=== PATIENT | female | born 1985 | race Caucasian/White ===

== ENCOUNTER 2019-12-23 08:35 | Emergency (ER) | payer MEDICAID ==
[2019-12-23 09:16] LABS: ABSOLUTE BASOPHILS # (AUTO) 0.1 10^3/uL (0.0-0.2); ABSOLUTE EOSINOPHILS # (AUTO) 0.3 10^3/uL (0.0-0.6); ABSOLUTE LYMPHOCYTES (AUTO) 2.5 10^3/uL (0.5-4.7); ABSOLUTE MONOCYTES (AUTO) 0.8 10^3/uL (0.1-1.4); ABSOLUTE NEUT (AUTO) 10.6 10^3/uL (1.7-8.2); BASOPHILS % (AUTO) 0.4 % (0-2); EOSINOPHILS % (AUTO) 2.3 % (0-6); HEMATOCRIT 43.1 % (36.0-47.0); HEMOGLOBIN 14.9 g/dL (12.0-15.5); LYMPHOCYTES % (AUTO) 17.2 % (13-45); MEAN CORPUSCULAR HEMOGLOBIN 31.3 pg (27.0-33.4); MEAN CORPUSCULAR HGB CONC 34.5 g/dL (32.0-36.0); MEAN CORPUSCULAR VOLUME 91 fl (80-97); MONOCYTES % (AUTO) 5.9 % (3-13); PLATELET COUNT 316 10^3/uL (150-450); RED BLOOD COUNT 4.74 10^6/uL (3.72-5.28); RED CELL DISTRIBUTION WIDTH 13.1 % (11.5-14.0); SEGMENTED NEUTROPHILS % (AUTO) 74.2 % (42-78); TOTAL CELLS COUNTED % (AUTO) 100 %; WHITE BLOOD COUNT 14.3 10^3/uL (4.0-10.5)
[2019-12-23 09:18] LABS: APPEARANCE,URINE SLIGHTLY-CLOUDY; BILIRUBIN,URINE NEGATIVE (NEGATIVE); COLOR,URINE YELLOW; GLUCOSE, URINE NEGATIVE (NEGATIVE); KETONES,URINE NEGATIVE (NEGATIVE); LEUKOCYTE ESTERASE,URINE SMALL (NEGATIVE); NITRITE,URINE NEGATIVE (NEGATIVE); PROTEIN,URINE NEGATIVE (NEGATIVE); URINE SPECIFIC GRAVITY 1.014; UROBILINOGEN,URINE NEGATIVE mg/dL (<2.0)
[2019-12-23 09:39] LABS: ALKALINE PHOSPHATASE 62 U/L (38-126); ANION GAP 10 (5-19); ASPARTATE AMINO TRANSFERASE 22 U/L (14-36); BILIRUBIN,TOTAL 0.3 mg/dL (0.2-1.3); BLOOD UREA NITROGEN 9 mg/dL (7-20); CALCIUM 9.3 mg/dL (8.4-10.2); CARBON DIOXIDE 22 mmol/L (22-30); CHLORIDE 104 mmol/L (98-107); GLUCOSE 92 mg/dL (75-110); POTASSIUM 4.3 mmol/L (3.6-5.0); TOTAL PROTEIN 7.1 g/dL (6.3-8.2)
--- NOTE | 2019-12-23 10:42 | ER Document Report ---
Entered by BEN SIMONS SCRIBE 12/23/19 1016 Acting as scribe for:LINDSEY HILLS DO ED GI/ - General Chief Complaint: Vag Bleeding, +preg <12wks Stated Complaint: VAGINAL BLEEDING Time Seen by Provider: 12/23/19 09:59 Primary Care Provider: MALOU CARLSON PA-C [Primary Care Provider] - Follow up as needed Mode of Arrival: Ambulatory Information source: Patient Notes: This 34-year-old female patient presents to the emergency department today with complaints of vaginal bleeding. Patient states her last menstrual period was around [place] and she thinks she is about 8 weeks . Patient is A1. Patient states this morning she sat down to urinate and she wiped and noticed blood, wiped again and noticed blood again. Patient states she had some mild right lower quadrant cramping that felt like "menstrual cramps". Patient states her urine had a strong odor this morning. Patient denies any pain currently. TRAVEL OUTSIDE OF THE [place] IN LAST 30 DAYS: No - Related Data Allergies/Adverse Reactions: No Known Allergies Allergy (Verified 12/23/19 08:36) Home Medications: OTC pre domi vit. Chazs/richlands Past Medical History - General Information source: Patient - Social History Smoking Status: Never Smoker Cigarette use (# per day): No Chew tobacco use (# tins/day): No Frequency of alcohol use: None Drug Abuse: None Lives with: Family Family History: Reviewed & Not Pertinent Patient has suicidal ideation: No Patient has homicidal ideation: No Renal/ Medical History: Reports: Hx Kidney Stones Past Surgical History: Reports: Hx Dilation and Curettage, Hx Tonsillectomy - Immunizations Hx Diphtheria, Pertussis, Tetanus Vaccination: Yes Review of Systems - Review of Systems Constitutional: No symptoms reported EENT: No symptoms reported Cardiovascular: No symptoms reported Respiratory: No symptoms reported Gastrointestinal: No symptoms reported Genitourinary: No symptoms reported Female Genitourinary: See HPI, , Vaginal bleeding Musculoskeletal: No symptoms reported Skin: No symptoms reported Hematologic/Lymphatic: No symptoms reported Neurological/Psychological: No symptoms reported -: Yes All other systems reviewed and negative Physical Exam - Vital signs Vitals: Temp Pulse Resp BP Pulse Ox 98.1 F 99 14 129/81 H 100 12/23/19 08:46 12/23/19 08:46 12/23/19 08:46 12/23/19 08:46 12/23/19 08:46 - Notes Notes: Physical Exam: General: Alert, appears well. HEENT: Normocephalic. Atraumatic. PERRL. Extraocular movements intact. Oropharynx clear. Neck: Supple. Non-tender. Respiratory: No respiratory distress. Clear and equal breath sounds bilaterally. Cardiovascular: Regular rate and rhythm. Abdominal: Normal Inspection. Non-tender. No distension. Normal Bowel Sounds. Back: No gross abnormalities. Extremities: Moves all four extremities. Upper extremities: Normal inspection. Normal ROM. Lower extremities: Normal inspection. No edema. Normal ROM. Neurological: Normal cognition. AAOx4. Normal speech. Psychological: Normal affect. Normal Mood. Skin: Warm. Dry. Normal color. Course - Vital Signs Vital signs: Temp Pulse Resp BP Pulse Ox 98.0 F 78 18 126/78 H 100 12/23/19 14:30 12/23/19 14:30 12/23/19 14:30 12/23/19 14:30 12/23/19 14:30 - Laboratory Result Diagrams: 12/23/19 08:55 12/23/19 08:55 Laboratory results interpreted by me: 12/23/19 12/23/19 12/23/19 08:55 08:55 08:55 WBC 14.3 H Absolute Neuts (auto) 10.6 H Sodium 135.7 L Beta HCG, Quant Ur Leukocyte Esterase SMALL H Urine Ascorbic Acid 20 H Urine HCG, Qual POSITIVE H 12/23/19 08:55 WBC Absolute Neuts (auto) Sodium Beta HCG, Quant 469920.00 H Ur Leukocyte Esterase Urine Ascorbic Acid Urine HCG, Qual Discharge - Discharge Clinical Impression: Threatened Condition: Good Disposition: HOME, SELF-CARE Instructions: ([facility]), Threatened Miscarriage ([facility]) Additional Instructions: See your doctors in follow up. Pelvic rest. No sex, douche or tampons until after Superintendent Custodian Janitor follow up. Please return here for abdominal pain, fever, other concerns. Prescriptions: Ondansetron [Zofran Odt 4 mg Tablet] 1 - 2 tab PO Q4HP PRN #10 tab.rapdis PRN Reason: Forms: Return to Work Referrals: MALOU CARLSON PA-C [Primary Care Provider] - Follow up as needed I personally performed the services described in the documentation, reviewed and edited the documentation which was dictated to the scribe in my presence, and it accurately records my words and actions.
--- NOTE | 2019-12-23 12:39 | RADIOLOGY REPORT (SQ) ---
EXAM DESCRIPTION: U/S [id number] TRNABD 1GES W/ODOP COMPLETED DATE/TIME: 12/23/2019 12:22 pm REASON FOR STUDY: Right side pain COMPARISON: None. TECHNIQUE: Transabdominal static and realtime grayscale images acquired of the pelvis. Additional se lected spectral and color Doppler images recorded. All images stored on PACs. bHCG: Not available. CLINICAL DATES: 7 weeks 5 days LIMITATIONS: None. FINDINGS: FETUS: Single Living intrauterine . ULTRASOUND EGA: 7 weeks 5 days ULTRASOUND CARMEN: 08/05/2020 EFW: Not applicable less than 20 weeks. CRL: 1.4 cm. FHR: 168 beats per minute. SURVEY: Too early to assess. AMNIOTIC FLUID: Adequate amount. PLACENTA: Not yet developed due to early gestation. SUBCHORIONIC BLEED: Yes SIZE OF BLEED: 1 cm UTERUS: No masses. No anomalies. CERVICAL LENGTH: 1.9 cm Closed. RIGHT ADNEXA: Normal ovary with normal vascular flow. 5 x 3.6 x 2.5 cm. There is an 18 mm cyst. No adnexal free fluid. No adnexal masses. LEFT ADNEXA: Normal ovary with normal vascular flow. 2.8 x 2.3 x 2.1 cm. No adnexal free fluid. No adnexal masses. FREE FLUID: None. OTHER: No other significant finding. IMPRESSION: LIVING INTRAUTERINE . EGA 7 weeks 5 days. Trimester of : First trimester - 0 to 13 weeks. TECHNICAL DOCUMENTATION: JOB ID: [id number] 2010 [employer]- All Rights Reserved rev-03/23 Reading location - IP/workstation name: [email or web address]
[2019-12-23 13:04] LABS: CHLAM PCR NOT DETECTED (NOT DETECT)
[2019-12-23 14:31] VITALS: BP 126/78
== END 2019-12-23 14:30 | disposition home or self-care (01) ==
LOC: ER 08:35
DX: O20.0 Threatened abortion (principal); O26.899 Other specified pregnancy related conditions, unspecified trimester; R10.31 Right lower quadrant pain; R39.89 Other symptoms and signs involving the genitourinary system; Z3A.00 Weeks of gestation of pregnancy not specified; Z79.899 Other long term (current) drug therapy
CPT/HCPCS: 36415; 76801; 80053; 81001; 81025; 83690; 84702; 85025; 86900; 86901; 87491; 87591; 99284

== ENCOUNTER → 2020-01-03 | Outpatient (CLI) | payer MEDICAID ==
--- NOTE | 2020-01-03 14:11 | RADIOLOGY REPORT (SQ) ---
EXAM DESCRIPTION: U/S [id number] TRNABD 1GES W/ODOP COMPLETED DATE/TIME: 01/03/2020 1:34 pm REASON FOR STUDY: Z34.81 ENCOUNTER FOR SUPRVSN OF NORMAL , FIRST TRIMESTER Z34.81 ENCOUNTE R FOR SUPRVSN OF NORMAL , FIRST TRIM COMPARISON: 12/23/2019 TECHNIQUE: Transabdominal static and realtime grayscale images acquired of the pelvis. Additional se lected spectral and color Doppler images recorded. All images stored on PACs. bHCG: Not applicable. CLINICAL DATES: LMP 10/30/2019. 9 weeks 2 days. LIMITATIONS: None. FINDINGS: FETUS: Single Living intrauterine . ULTRASOUND EGA: 9 weeks 6 days. ULTRASOUND CARMEN: 08/01/2020 EFW: Not applicable less than 20 weeks. CRL: 3 cm. FHR: 173 beats per minute. SURVEY: Too early to assess. AMNIOTIC FLUID: Adequate amount. PLACENTA: Not yet developed due to early gestation. SUBCHORIONIC BLEED: Yes SIZE OF BLEED: 3.8 x 1.8 x 1 cm. UTERUS: No masses. No anomalies. CERVICAL LENGTH: 3.4 cm. Closed. RIGHT ADNEXA: Normal ovary with normal vascular flow. 3 x 2.3 x 2.6 cm. No adnexal free fluid. No adnexal masses. LEFT ADNEXA: Normal ovary with normal vascular flow. 2.9 x 2.3 x 1.7 cm. No adnexal free fluid. No adnexal masses. FREE FLUID: None. OTHER: No other significant finding. IMPRESSION: LIVING INTRAUTERINE . EGA 9 weeks 6 days. Trimester of : First trimester - 0 to 13 weeks. TECHNICAL DOCUMENTATION: JOB ID: [id number] 2010 [employer]- All Rights Reserved rev-03/23 Reading location - IP/workstation name: [email or web address]
== END ==
LOC: WI 12:45
PROVIDERS: ATTEND Midwife
DX: Z34.81 Encounter for supervision of other normal pregnancy, first trimester (principal); Z3A.09 9 weeks gestation of pregnancy
CPT/HCPCS: 76801

== ENCOUNTER 2020-03-24 14:20 | Inpatient (IN) | payer MEDICAID ==
[2020-03-24] MEDS ORDERED: RINGERS SOLUTION,LACTATED 300 ML IV ONE (14:28)
[2020-03-24] MEDS ORDERED: ACETAMINOPHEN 325 MG TABLET PO PRN ×2 (14:38→23:22)
[2020-03-24 15:21] LABS: HEMATOCRIT 34.4 % (36.0-47.0); MEAN CORPUSCULAR HEMOGLOBIN 31.4 pg (27.0-33.4); MEAN CORPUSCULAR HGB CONC 34.9 g/dL (32.0-36.0); MEAN CORPUSCULAR VOLUME 90 fl (80-97); PLATELET COUNT 241 10^3/uL (150-450); RED BLOOD COUNT 3.82 10^6/uL (3.72-5.28); RED CELL DISTRIBUTION WIDTH 12.5 % (11.5-14.0); WHITE BLOOD COUNT 13.8 10^3/uL (4.0-10.5)
[2020-03-24] MEDS: RINGERS SOLUTION,LACTATED 1,000 ML IV PRN (15:23)
[2020-03-24 15:38] LABS: ABSOLUTE LYMPHOCYTES# (MANUAL) 0.7 10^3/uL (0.5-4.7); ABSOLUTE MONOCYTES # (MANUAL) 0.6 10^3/uL (0.1-1.4); BAND NEUTROPHILS % (MANUAL) 4 % (3-5); BASOPHILS % (MANUAL) 0 % (0-2); EOSINOPHILS % (MANUAL) 0 % (0-6); LYMPHOCYTES % (MANUAL) 4 % (13-45); MONOCYTES % (MANUAL) 4 % (3-13); SEGMENTED NEUTROPHILS % (MAN) 87 % (42-78); TOTAL CELLS COUNTED 100
[2020-03-24 15:40] LABS: PLATELET COMMENT ADEQUATE; POLYCHROMASIA SLIGHT
[2020-03-24] MEDS ORDERED: PROMETHAZINE HCL INJ 25 MG/1 ML VIAL ONE ×3 (15:45→21:32)
[2020-03-24] MEDS ORDERED: PROMETHAZINE HCL INJ 25 MG/1 ML VIAL IV ONE (16:30)
[2020-03-24] MEDS: CEFTRIAXONE 1 GM/D5W RTU 1 GM/50 ML RTUPB IV SCH (17:09)
--- NOTE | 2020-03-24 17:18 | PDOC PROGRESS REPORT ---
Subjective Progress Note for:: 03/24/20 Subjective:: 35yo @ 20w6d direct admit from office with possible kidney stone vs pyelonephritis. Pt reports feeling better after she got here, thinks she passed a stone on arrival. Reports chills are still present and nauseous, no other concerns Reason For Visit: IUP @ 20W6D - PRESUMPTIVE PYELONEPHRITIS Physical Exam - Physical Exam Vital Signs: Temp Pulse Resp BP Pulse Ox 99.3 F 123 H 16 118/98 H 99 03/24/20 16:53 03/24/20 16:53 03/24/20 16:53 03/24/20 16:53 03/24/20 16:53 Intake & Output 03/23/20 03/24/20 03/25/20 06:59 06:59 06:59 Weight 88.4 kg Result Laboratory Results: 03/24/20 15:12 03/24/20 15:12 WBC 13.8 H RBC 3.82 Hgb 12.0 Hct 34.4 L MCV 90 MCH 31.4 MCHC 34.9 RDW 12.5 Plt Count 241 Seg Neutrophils % Not Reportable Assessment & Plan - Diagnosis (1) related back pain in second trimester, antepartum Is this a current diagnosis for this admission?: Yes Plan: continue IV fluids, rocephin q12hrs and other orders as planned on admission. U rine culture and covid testing pending. Phenergan given for nausea, consider IV tylenol if nausea continues. Dr. Carl is the OB commercial subcontractor today and aware of pt status. H&P printed from e-clinical and in chart. - Time Time Spent with patient: via phone while awaiting covid results Time Spent with patient: Less than 15 minutes Level of Care: MEDICAL Medications reviewed and adjusted accordingly: Yes Anticipated discharge: Home Within: within 36 hours - Plan Summary Plan Summary: anticipate discharge within 36hrs, earlier prn
[2020-03-24 17:42] LABS: APPEARANCE,URINE CLOUDY; BILIRUBIN,URINE NEGATIVE (NEGATIVE); COLOR,URINE YELLOW; GLUCOSE, URINE NEGATIVE (NEGATIVE); KETONES,URINE 20 mg/dL (NEGATIVE); LEUKOCYTE ESTERASE,URINE LARGE (NEGATIVE); NITRITE,URINE NEGATIVE (NEGATIVE); PROTEIN,URINE 100 mg/dL (NEGATIVE); URINE SPECIFIC GRAVITY 1.018; UROBILINOGEN,URINE NEGATIVE mg/dL (<2.0)
[2020-03-24 18:06] LABS: URINE AMPHETAMINES SCREEN NEGATIVE; URINE BARBITURATES SCREEN NEGATIVE; URINE BENZODIAZEPINES SCREEN NEGATIVE; URINE COCAINE SCREEN NEGATIVE; URINE MARIJUANA (THC) SCREEN NEGATIVE; URINE METHADONE SCREEN NEGATIVE; URINE PHENCYCLIDINE SCREEN NEGATIVE
[2020-03-24] MEDS ORDERED: CEFTRIAXONE INJ 1000 MG VIAL IV SCH (22:00)
[2020-03-24] MEDS ORDERED: CEFTRIAXONE 1 GM/D5W RTU 1 GM/50 ML RTUPB IV SCH (22:00)
[2020-03-24] MEDS ORDERED: ACETAMINOPHEN 325 MG SUPP.RECT PR PRN (23:14)
[2020-03-25] MEDS: RINGERS SOLUTION,LACTATED 1,000 ML IV PRN ×3 (00:27→21:58)
[2020-03-25] MEDS: PROMETHAZINE HCL INJ 25 MG/1 ML VIAL IV PRN ×3 (03:58→20:50)
[2020-03-25] MEDS: CEFTRIAXONE 1 GM/D5W RTU 1 GM/50 ML RTUPB IV SCH ×2 (05:18→17:25)
[2020-03-25] MEDS: ONDANSETRON HCL INJ/PF 4 MG/2 ML SDV IV PRN ×2 (08:54→17:32)
--- NOTE | 2020-03-25 10:43 | PDOC PROGRESS REPORT ---
Subjective Progress Note for:: 03/25/20 Subjective:: [place]F, reports vomiting a lot last night. thinks tyelnol po was irritating her stomach. flutters. no vb/no lof. Reason For Visit: NORAH @ 20W6D - PRESUMPTIVE PYELONEPHRITIS Physical Exam - Physical Exam Vital Signs: Temp Pulse Resp BP Pulse Ox 99.4 F 128 H 16 96/57 L 95 03/25/20 08:00 03/25/20 08:00 03/25/20 08:00 03/25/20 08:00 03/25/20 08:00 Intake & Output 03/24/20 03/25/20 03/26/20 06:59 06:59 06:59 Intake Total 420 Output Total 1425 Balance -1005 Weight 88 kg General appearance: PRESENT: no acute distress, well-developed, well-nourished Head exam: PRESENT: atraumatic, normocephalic Eye exam: PRESENT: conjunctiva pink, EOMI, PERRLA. ABSENT: scleral icterus Mouth exam: PRESENT: moist, tongue midline Respiratory exam: PRESENT: clear to auscultation parag, symmetrical, unlabored Cardiovascular exam: PRESENT: RRR. ABSENT: diastolic murmur, rubs, systolic murmur Pulses: PRESENT: normal dorsalis pedis pul, +2 pedal pulses bilateral Vascular exam: PRESENT: normal capillary refill GI/Abdominal exam: PRESENT: normal bowel sounds, soft. ABSENT: distended, guarding, mass, organolmegaly, rebound, tenderness Rectal exam: PRESENT: deferred Extremities exam: PRESENT: full ROM. ABSENT: calf tenderness, clubbing, pedal edema Musculoskeletal exam: PRESENT: ambulatory Neurological exam: PRESENT: alert, awake, oriented to person, oriented to place, oriented to time, oriented to situation, CN II-XII grossly intact. ABSENT: motor sensory deficit Skin exam: PRESENT: dry, intact, warm. ABSENT: cyanosis, rash Result Laboratory Results: 03/24/20 15:12 03/24/20 03/24/20 15:12 17:20 WBC 13.8 H RBC 3.82 Hgb 12.0 Hct 34.4 L MCV 90 MCH 31.4 MCHC 34.9 RDW 12.5 Plt Count 241 Seg Neutrophils % Not Reportable Urine Color YELLOW Urine Appearance CLOUDY Urine pH 6.0 Ur Specific [place] 1.018 Urine Protein 100 H Urine Glucose (UA) NEGATIVE Urine Ketones 20 H Urine Blood SMALL H Urine Nitrite NEGATIVE Ur Leukocyte Esterase LARGE H Urine WBC (Auto) >182 Urine RBC (Auto) 48 Status: Imported from PACS Assessment & Plan - Diagnosis (1) Pyelonephritis affecting Is this a current diagnosis for this admission?: Yes Plan: Cont ROcephin 1 gram q 12. Blood cultures, sepsis screen ordered increase IVF due to still dehydration and tachy. cont to treat fever prn. Changed pain meds to po elixir. (2) Nephrolithiasis Is this a current diagnosis for this admission?: Yes Plan: see above - Time Time Spent with patient: 15-24 minutes Medications reviewed and adjusted accordingly: Yes Anticipated discharge: Home Within: within 48 hours - Inpatient Certification Based on my medical assessment, after consideration of the patient's comorbidities, presenting symptoms, or acuity I expect that the services needed warrant INPATIENT care.: Yes I certify that my determination is in accordance with my understanding of Medicare's requirements for reasonable and necessary INPATIENT services [42 CFR 412.3e].: Yes Medical Necessity: Need Close Monitoring Due to Risk of Patient Decompensation, Need For IV Fluids, Need for Pain Control, Need for IV Antibiotics, Risk of Complication if Not Cared For in Hospital
[2020-03-25] MEDS ORDERED: RINGERS SOLUTION,LACTATED 1,000 ML IV ONE (12:38)
[2020-03-25] MEDS: ACETAMINOPHEN WITH CODEINE 120-12 MG/5 ML UDCUP PO PRN ×3 (12:45→22:23)
[2020-03-25 13:28] LABS: ALBUMIN 2.5 g/dL (3.5-5.0); ALKALINE PHOSPHATASE 39 U/L (38-126); ANION GAP 8 (5-19); ASPARTATE AMINO TRANSFERASE 16 U/L (14-36); BILIRUBIN,TOTAL 0.2 mg/dL (0.2-1.3); BLOOD UREA NITROGEN 4 mg/dL (7-20); CALCIUM 7.7 mg/dL (8.4-10.2); CARBON DIOXIDE 19 mmol/L (22-30); CHLORIDE 104 mmol/L (98-107); GLUCOSE 130 mg/dL (75-110); POTASSIUM 3.2 mmol/L (3.6-5.0); TOTAL PROTEIN 5.2 g/dL (6.3-8.2)
[2020-03-25 13:37] LABS: ABSOLUTE LYMPHOCYTES (AUTO) 1.1 10^3/uL (0.5-4.7); ABSOLUTE MONOCYTES (AUTO) 0.8 10^3/uL (0.1-1.4); ABSOLUTE NEUT (AUTO) 11.3 10^3/uL (1.7-8.2); BASOPHILS % (AUTO) 0.1 % (0-2); HEMATOCRIT 27.8 % (36.0-47.0); LYMPHOCYTES % (AUTO) 8.3 % (13-45); MEAN CORPUSCULAR HEMOGLOBIN 31.9 pg (27.0-33.4); MEAN CORPUSCULAR HGB CONC 35.2 g/dL (32.0-36.0); MEAN CORPUSCULAR VOLUME 91 fl (80-97); MONOCYTES % (AUTO) 5.9 % (3-13); PLATELET COUNT 196 10^3/uL (150-450); RED BLOOD COUNT 3.07 10^6/uL (3.72-5.28); RED CELL DISTRIBUTION WIDTH 12.7 % (11.5-14.0); SEGMENTED NEUTROPHILS % (AUTO) 85.7 % (42-78); TOTAL CELLS COUNTED % (AUTO) 100 %; WHITE BLOOD COUNT 13.2 10^3/uL (4.0-10.5)
[2020-03-25 13:38] LABS: HEMOGLOBIN 9.8 g/dL (12.0-15.5)
[2020-03-25] MEDS: FAMOTIDINE INJ/PF 20 MG/2 ML SDV IV SCH (22:24)
[2020-03-26] MEDS: ONDANSETRON HCL INJ/PF 4 MG/2 ML SDV IV PRN ×3 (02:29→22:06)
[2020-03-26] MEDS: ACETAMINOPHEN SOLN 325 MG/10.15 ML UDCUP PO PRN ×4 (06:25→22:04)
[2020-03-26] MEDS: RINGERS SOLUTION,LACTATED 1,000 ML IV PRN ×3 (06:34→18:52)
[2020-03-26] MEDS: CEFTRIAXONE 1 GM/D5W RTU 1 GM/50 ML RTUPB IV SCH ×2 (06:34→17:01)
--- NOTE | 2020-03-26 07:13 | RADIOLOGY REPORT (SQ) ---
CHEST 1 VIEW on 03/26/2020 at 6:20 AM CLINICAL INDICATION: Chest pain COMPARISON: None FINDINGS: The lungs are clear. Cardiac, hilar and mediastinal contours are within normal limits. Pulmonary vascularity is within normal limits. No bony abnormality is noted. IMPRESSION: No active disease.
[2020-03-26 07:14] LABS: ABSOLUTE LYMPHOCYTES (AUTO) 1.2 10^3/uL (0.5-4.7); ABSOLUTE MONOCYTES (AUTO) 0.8 10^3/uL (0.1-1.4); ABSOLUTE NEUT (AUTO) 8.5 10^3/uL (1.7-8.2); BASOPHILS % (AUTO) 0.4 % (0-2); EOSINOPHILS % (AUTO) 0.1 % (0-6); HEMATOCRIT 26.9 % (36.0-47.0); HEMOGLOBIN 9.7 g/dL (12.0-15.5); LYMPHOCYTES % (AUTO) 11.6 % (13-45); MEAN CORPUSCULAR HGB CONC 36.3 g/dL (32.0-36.0); MEAN CORPUSCULAR VOLUME 91 fl (80-97); MONOCYTES % (AUTO) 7.3 % (3-13); PLATELET COUNT 178 10^3/uL (150-450); RED BLOOD COUNT 2.96 10^6/uL (3.72-5.28); RED CELL DISTRIBUTION WIDTH 12.6 % (11.5-14.0); SEGMENTED NEUTROPHILS % (AUTO) 80.6 % (42-78); TOTAL CELLS COUNTED % (AUTO) 100 %; WHITE BLOOD COUNT 10.5 10^3/uL (4.0-10.5)
[2020-03-26 07:32] LABS: ANION GAP 6 (5-19); BLOOD UREA NITROGEN 4 mg/dL (7-20); CALCIUM 7.7 mg/dL (8.4-10.2); CARBON DIOXIDE 20 mmol/L (22-30); CHLORIDE 105 mmol/L (98-107); GLUCOSE 103 mg/dL (75-110); POTASSIUM 3.3 mmol/L (3.6-5.0)
[2020-03-26 07:44] LABS: NT PRO BNP 1240 pg/mL (<125); TROPONIN I 0.035 ng/mL
[2020-03-26 07:45] LABS: CREATINE KINASE MB < 0.22 ng/mL (<4.55)
[2020-03-26] MEDS ORDERED: NORMAL SALINE 1000 ML 1,000 ML IV ONE (08:00)
--- NOTE | 2020-03-26 09:37 | PDOC CONSULTATION ---
Consultation Consult Date: 03/26/20 Provider Consulted: MISAEL TAYLOR Consult reason:: Chest pain History of Present Illness Admission Date/PCP: 03/24/20 14:20 RYLAN PEACE CNM History of Present Illness: DARYA BARILLAS is a 35 year old female at 20 weeks who was admitted by the obstetric service for a pyelonephritis. She has been on Rocephin. This morning she was complaining of some chest pressure and shortness of breath in the middle of her chest. It was nonradiating. She said it lasted for about 2 hours and has resolved. She was not hypoxic, but her SPO2 was apparently in the low 90s. Her heart rate has been elevated and her blood pressure has been low, with a systolic in the 80s. She was given some IV fluids. She says right now she just feels sort of tired but other than that she is not complaining of any pain. She said that she has a history of kidney stones but otherwise has no history of any medical problems. She had a little bit of nausea earlier but th at has resolved. Past Medical History Psychiatric Medical History: Denies: Depression Past Surgical History Past Surgical History: Reports: Tonsillectomy Social History Smoking Status: Never Smoker Frequency of Alcohol Use: None Hx Recreational Drug Use: No Family History Family History: Reviewed & Not Pertinent Parental Family History Reviewed: Yes Children Family History Reviewed: Yes Sibling(s) Family History Reviewed.: Yes Medication/Allergy Home Medications: Ondansetron [Zofran Odt 4 mg Tablet] 1 - 2 tab PO Q4HP PRN #10 tab.rapdis 12/23/19 Allergies/Adverse Reactions: No Known Allergies Allergy (Verified 12/23/19 08:36) Review of Systems All systems: reviewed and no additional remarkable complaints except as stated - All systems were reviewed and were negative except as noted in the HPI Physical Exam Vital Signs: Temp Pulse Resp BP Pulse Ox 98.5 F 112 H 16 95/50 L 98 03/26/20 08:00 03/26/20 08:00 03/26/20 08:00 03/26/20 08:00 03/26/20 08:00 Intake & Output 03/25/20 03/26/20 03/27/20 06:59 06:59 06:59 Intake Total 420 1450 50 Output Total 1425 975 Balance -1005 475 50 Weight 88 kg 87.6 kg General appearance: PRESENT: no acute distress, cooperative, obese, well- developed, well-nourished Head exam: PRESENT: atraumatic, normocephalic Eye exam: PRESENT: EOMI, PERRLA. ABSENT: conjunctival injection, nystagmus, scleral icterus Ear exam: PRESENT: normal external ear exam Mouth exam: PRESENT: moist, neck supple Throat exam: ABSENT: post pharyngeal erythema Neck exam: PRESENT: full ROM. ABSENT: carotid bruit, JVD, lymphadenopathy, meningismus, tenderness, thyromegaly Respiratory exam: PRESENT: clear to auscultation parag, symmetrical, unlabored. ABSENT: accessory muscle use, chest wall tenderness, crackles, prolonged expiratory phas, retraction, rhonchi, tachypnea, wheezes Cardiovascular exam: PRESENT: +S1, +S2, tachycardia. ABSENT: diastolic murmur, systolic murmur Pulses: PRESENT: normal carotid pulses Vascular exam: PRESENT: normal capillary refill GI/Abdominal exam: PRESENT: normal bowel sounds, other - Gravid. ABSENT: guarding, rebound, tenderness Extremities exam: ABSENT: calf tenderness, clubbing, pedal edema Musculoskeletal exam: PRESENT: normal inspection. ABSENT: deformity Neurological exam: PRESENT: alert, awake, oriented to person, oriented to place, oriented to time, oriented to situation, CN II-XII grossly intact. ABSENT: motor sensory deficit Psychiatric exam: PRESENT: appropriate affect, normal mood Skin exam: PRESENT: dry, warm Results Laboratory Results: 03/26/20 06:57 03/26/20 06:57 03/25/20 03/25/20 03/25/20 13:00 13:00 13:00 WBC 13.2 H RBC 3.07 L Hgb 9.8 L D Hct 27.8 L MCV 91 MCH 31.9 MCHC 35.2 RDW 12.7 Plt Count 196 Seg Neutrophils % 85.7 H Sodium 130.5 L Potassium 3.2 L Chloride 104 Carbon Dioxide 19 L Anion Gap 8 BUN 4 L Creatinine 0.64 Est GFR ( Amer) > 60 Glucose 130 H Lactic Acid 1.7 Calcium 7.7 L Magnesium Total Bilirubin 0.2 AST 16 Alkaline Phosphatase 39 Total Protein 5.2 L Albumin 2.5 L 03/26/20 03/26/20 06:57 06:57 WBC 10.5 RBC 2.96 L Hgb 9.7 L Hct 26.9 L MCV 91 MCH 33.0 MCHC 36.3 H RDW 12.6 Plt Count 178 Seg Neutrophils % 80.6 H Sodium 131.4 L Potassium 3.3 L Chloride 105 Carbon Dioxide 20 L Anion Gap 6 BUN 4 L Creatinine 0.59 Est GFR ( Amer) > 60 Glucose 103 Lactic Acid Calcium 7.7 L Magnesium 1.5 L Total Bilirubin AST Alkaline Phosphatase Total Protein Albumin 03/26/20 03/26/20 06:57 06:57 Creatine Kinase 43 CK-MB (CK-2) < 0.22 Troponin I 0.035 NT-Pro-B Natriuret Pep 1240 H Impressions: Chest X-Ray 03/26/20 00:00 IMPRESSION: No active disease. Assessment and Plan - Diagnosis (1) Chest pain Qualifiers: Chest pain type: other chest pain Qualified Code(s): R07.89 - Other chest pain; R07.8 - Other chest pain Is this a current diagnosis for this admission?: Yes Plan: Her troponin was equivocal, and her BNP was mildly elevated. Her heart rate is elevated. Her shortness of breath has resolved. Chest x-ray was normal. Her d-dimer was elevated but with her being I would expect it to be elevated and so is not really of any utility here. Of ordered an EKG. I also ordered a VQ scan to rule out thromboembolic disease. Her blood pressure was low so the heaviness that she felt could have been from tachycardia related to that, but will rule out other etiologies to just to be sure. (2) Pyelonephritis affecting Qualifiers: Trimester: second trimester Qualified Code(s): O23.02 - Infections of kidne y in , second trimester Is this a current diagnosis for this admission?: Yes Plan: Continue Rocephin per the primary service - Time Time Spent with patient: 35 or more minutes
--- NOTE | 2020-03-26 09:51 | PDOC PROGRESS REPORT ---
Subjective Progress Note for:: 03/26/20 Subjective:: Doing better this morning. Reason For Visit: IUP @ 20W6D - PRESUMPTIVE PYELONEPHRITIS Physical Exam - Physical Exam Vital Signs: Temp Pulse Resp BP Pulse Ox 97.5 F 102 H 16 88/47 L 93 03/26/20 09:08 03/26/20 09:08 03/26/20 09:08 03/26/20 09:08 03/26/20 09:08 Intake & Output 03/25/20 03/26/20 03/27/20 06:59 06:59 06:59 Intake Total 420 1450 50 Output Total 1425 975 Balance -1005 475 50 Weight 88 kg 87.6 kg General appearance: PRESENT: no acute distress Cardiovascular exam: PRESENT: RRR. ABSENT: diastolic murmur, rubs, systolic murmur Pulses: PRESENT: normal dorsalis pedis pul, +2 pedal pulses bilateral Result Laboratory Results: 03/26/20 06:57 03/26/20 06:57 03/25/20 03/25/20 03/25/20 13:00 13:00 13:00 WBC 13.2 H RBC 3.07 L Hgb 9.8 L D Hct 27.8 L MCV 91 MCH 31.9 MCHC 35.2 RDW 12.7 Plt Count 196 Seg Neutrophils % 85.7 H Sodium 130.5 L Potassium 3.2 L Chloride 104 Carbon Dioxide 19 L Anion Gap 8 BUN 4 L Creatinine 0.64 Est GFR ( Amer) > 60 Glucose 130 H Lactic Acid 1.7 Calcium 7.7 L Magnesium Total Bilirubin 0.2 AST 16 Alkaline Phosphatase 39 Total Protein 5.2 L Albumin 2.5 L 03/26/20 03/26/20 06:57 06:57 WBC 10.5 RBC 2.96 L Hgb 9.7 L Hct 26.9 L MCV 91 MCH 33.0 MCHC 36.3 H RDW 12.6 Plt Count 178 Seg Neutrophils % 80.6 H Sodium 131.4 L Potassium 3.3 L Chloride 105 Carbon Dioxide 20 L Anion Gap 6 BUN 4 L Creatinine 0.59 Est GFR ( Amer) > 60 Glucose 103 Lactic Acid Calcium 7.7 L Magnesium 1.5 L Total Bilirubin AST Alkaline Phosphatase Total Protein Albumin 03/26/20 03/26/20 06:57 06:57 Creatine Kinase 43 CK-MB (CK-2) < 0.22 Troponin I 0.035 NT-Pro-B Natriuret Pep 1240 H Impressions: Chest X-Ray 03/26/20 00:00 IMPRESSION: No active disease. Assessment & Plan - Diagnosis (1) Pyelonephritis affecting Qualifiers: Trimester: second trimester Qualified Code(s): O23.02 - Infections of kidney in , second trimester Is this a current diagnosis for this admission?: Yes Plan: Awaiting culture results. - Time Time Spent with patient: 15-24 minutes - Plan Summary Plan Summary: Plan to discharge after cultures return on PO abx. She has a V/Q scan scheduled for later as well.
[2020-03-26] MEDS: FAMOTIDINE INJ/PF 20 MG/2 ML SDV IV SCH ×2 (11:25→22:06)
[2020-03-26 12:36] LABS: TROPONIN I 0.019 ng/mL
[2020-03-26 12:39] LABS: CREATINE KINASE MB < 0.22 ng/mL (<4.55)
--- NOTE | 2020-03-26 12:49 | RADIOLOGY REPORT (SQ) ---
EXAM DESCRIPTION: CTA CHEST IMAGES COMPLETED DATE/TIME: 03/26/2020 12:36 pm REASON FOR STUDY: chest pain, tachycardia, SOB COMPARISON: None. TECHNIQUE: CT scan of the chest performed using helical scanning technique with dynamic intravenous contrast injection. Images reviewed with lung, soft tissue and bone windows. Reconstructed coronal and sagittal MPR images reviewed. Additional 3 dimensional post-processing performed to develop Maximal Intensity Projection images (MT P). All images stored on PACS. All CT scanners at this facility use dose modulation, iterative reconstruction, and/or weight based d osing when appropriate to reduce radiation dose to as low as reasonably achievable (ALARA). [facility]: Dose Right [facility]: CareDose [facility]: Dose Right [facility]: Teradose 4D [facility]: [employer] CONTRAST TYPE AND DOSE: contrast/concentration: Isovue 300.00 mg/ml; Total Contrast Delivered: 68.0 ml; Total Saline Delivered: 80.0 ml Contrast bolus adequate for pulmonary arteries and aorta. RENAL FUNCTION: BUN 4 creatinine 0.59. RADIATION DOSE: CT Rad equipment meets quality standard of care and radiation dose reduction techniq ues were employed. CTDIvol: 11.3 - 15.2 mGy. DLP: 565 mGy-cm. . LIMITATIONS: None. FINDINGS: LUNGS AND PLEURA: No masses, infiltrates, or pneumothorax. No pleural effusions or pleura l calcifications. AORTA AND GREAT VESSELS: No aneurysm. No dissection. HEART: No pericardial effusion. No significant coronary artery calcifications. PULMONARY ARTERIES: No emboli visualized in the main pulmonary arteries or the segmental branches. HILAR AND MEDIASTINAL STRUCTURES: No identified masses or abnormal nodes. HARDWARE: None in the chest. UPPER ABDOMEN: No significant findings. Limited exam. THYROID AND OTHER SOFT TISSUES: No masses. No adenopathy. BONES: No acute or significant finding. 3D MIPS: Confirm above findings. OTHER: No other significant finding. IMPRESSION: NORMAL CTA OF THE CHEST. NO PULMONARY EMBOLI. COMMENT: Quality ID # [id number]: Final reports with documentation of one or more dose reduction techniques (e.g., Automated exposure control, adjustment of the mA and/or kV according to patient size, use of iterative reconstruction technique) TECHNICAL DOCUMENTATION: JOB ID: [id number] 2010 [employer]- All Rights Reserved Reading location - IP/workstation name: [email or web address]
[2020-03-26 20:12] LABS: CREATINE KINASE MB 0.32 ng/mL (<4.55); TROPONIN I 0.022 ng/mL
--- NOTE | 2020-03-26 20:56 | EKG REPORT ---
SEVERITY:- OTHERWISE NORMAL ECG - SINUS TACHYCARDIA : Confirmed by: Rosa Farrar MD 26-Mar-2020 20:55:42
[2020-03-27] MEDS: RINGERS SOLUTION,LACTATED 1,000 ML IV PRN ×2 (00:44→08:26)
[2020-03-27] MEDS: ONDANSETRON HCL INJ/PF 4 MG/2 ML SDV IV PRN (04:03)
[2020-03-27] MEDS: CEFTRIAXONE 1 GM/D5W RTU 1 GM/50 ML RTUPB IV SCH (06:09)
[2020-03-27] MEDS: PROMETHAZINE HCL INJ 25 MG/1 ML VIAL IV PRN (08:25)
[2020-03-27] MEDS: FAMOTIDINE INJ/PF 20 MG/2 ML SDV IV SCH (10:16)
--- NOTE | 2020-03-27 10:21 | PDOC DISCHARGE SUMMARY ---
Impression - Admit/DC Date/PCP Admission Date/Primary Care Provider: 03/24/20 14:20 RYLAN PEACE CNM Discharge Date: 03/27/20 - Discharge Diagnosis (1) Chest pain Is this a current diagnosis for this admission?: Yes (2) Nephrolithiasis Is this a current diagnosis for this admission?: Yes (3) related back pain in second trimester, antepartum Is this a current diagnosis for this admission?: Yes (4) Pyelonephritis affecting Is this a current diagnosis for this admission?: Yes - Assessment Summary: admited with pyelonephritis that has been treated and improved significantly. Patient on arrival did complain of chest pain and had a full work-up with CT CT of the chest returned negative for any type of pulmonary embolism. Her hospital course has shown significant improvement of her flank tenderness and she is now ready for discharge home. Cultures have not grown any bacteria. Her white count has improved to a normal level - Additional Information Resuscitation Status: Full Code Discharge Diet: As Tolerated Discharge Activity: Balance Activity w/Rest Referrals: RYLAN PEACE CNM [Primary Care Provider] - Prescriptions: Cephalexin Monohydrate [Keflex 500 mg Capsule] 500 mg PO QID #20 capsule Home Medications: Ondansetron [Zofran Odt 4 mg Tablet] 1 - 2 tab PO Q4HP PRN #10 tab.rapdis 12/23/19 Cephalexin Monohydrate [Keflex 500 mg Capsule] 500 mg PO QID #20 capsule 03/27/20 History of Present Illiness History of Present Illness: DARYA BARILLAS is a 35 year old female Physical Exam - Physical Exam Vital Signs: Temp Pulse Resp BP Pulse Ox 97.9 F 108 H 18 105/63 99 03/27/20 08:13 03/27/20 08:13 03/27/20 08:13 03/27/20 08:13 03/27/20 08:13 Intake & Output 03/26/20 03/27/20 03/28/20 06:59 06:59 06:59 Intake Total 1450 1950 50 Output Total 975 300 Balance 475 1650 50 Weight 87.6 kg Results Laboratory Results: WBC 10.5 10^3/uL (4.0-10.5) 03/26/20 06:57 RBC 2.96 10^6/uL (3.72-5.28) L 03/26/20 06:57 Hgb 9.7 g/dL (12.0-15.5) L 03/26/20 06:57 Hct 26.9 % (36.0-47.0) L 03/26/20 06:57 MCV 91 fl (80-97) 03/26/20 06:57 MCH 33.0 pg (27.0-33.4) 03/26/20 06:57 MCHC 36.3 g/dL (32.0-36.0) H 03/26/20 06:57 RDW 12.6 % (11.5-14.0) 03/26/20 06:57 Plt Count 178 10^3/uL (150-450) 03/26/20 06:57 Lymph % (Auto) 11.6 % (13-45) L 03/26/20 06:57 [place] % (Auto) 7.3 % (3-13) 03/26/20 06:57 Eos % (Auto) 0.1 % (0-6) 03/26/20 06:57 Baso % (Auto) 0.4 % (0-2) 03/26/20 06:57 Absolute Neuts (auto) 8.5 10^3/uL (1.7-8.2) H 03/26/20 06:57 Absolute Lymphs (auto) 1.2 10^3/uL (0.5-4.7) 03/26/20 06:57 Absolute Monos (auto) 0.8 10^3/uL (0.1-1.4) 03/26/20 06:57 Absolute Eos (auto) 0.0 10^3/uL (0.0-0.6) 03/26/20 06:57 Absolute Basos (auto) 0.0 10^3/uL (0.0-0.2) 03/26/20 06:57 Total Counted 100 03/24/20 15:12 Seg Neutrophils % 80.6 % (42-78) H 03/26/20 06:57 Seg Neuts % (Manual) 87 % (42-78) H 03/24/20 15:12 Band Neutrophils % 4 % (3-5) 03/24/20 15:12 Lymphocytes % (Manual) 4 % (13-45) L 03/24/20 15:12 Atypical Lymphs % 1 % (0) 03/24/20 15:12 Monocytes % (Manual) 4 % (3-13) 03/24/20 15:12 Eosinophils % (Manual) 0 % (0-6) 03/24/20 15:12 Basophils % (Manual) 0 % (0-2) 03/24/20 15:12 Abs Neuts (Manual) 12.6 10^3/uL (1.7-8.2) H 03/24/20 15:12 Abs Lymphs (Manual) 0.7 10^3/uL (0.5-4.7) 03/24/20 15:12 Abs Monocytes (Manual) 0.6 10^3/uL (0.1-1.4) 03/24/20 15:12 Absolute Eos (Manual) 0.0 10^3/uL (0.0-0.6) 03/24/20 15:12 Abs Basophils (Manual) 0.0 10^3/uL (0.0-0.2) 03/24/20 15:12 Platelet Comment ADEQUATE 03/24/20 15:12 Polychromasia SLIGHT 03/24/20 15:12 D-Dimer 2.26 ug/mL (0.00-0.50) H 03/26/20 06:57 Sodium 131.4 mmol/L (137-145) L 03/26/20 06:57 Potassium 3.3 mmol/L (3.6-5.0) L 03/26/20 06:57 Chloride 105 mmol/L (98-107) 03/26/20 06:57 Carbon Dioxide 20 mmol/L (22-30) L 03/26/20 06:57 Anion Gap 6 (5-19) 03/26/20 06:57 BUN 4 mg/dL (7-20) L 03/26/20 06:57 Creatinine 0.59 mg/dL (0.52-1.25) 03/26/20 06:57 Est GFR ( Amer) > 60 (>60) 03/26/20 06:57 Est GFR (MDRD) Non-Af > 60 (>60) 03/26/20 06:57 Glucose 103 mg/dL (75-110) 03/26/20 06:57 Lactic Acid 1.7 mmol/L (0.7-2.1) 03/25/20 13:00 Calcium 7.7 mg/dL (8.4-10.2) L 03/26/20 06:57 Magnesium 1.5 mg/dL (1.6-2.3) L 03/26/20 06:57 Total Bilirubin 0.2 mg/dL (0.2-1.3) 03/25/20 13:00 Direct Bilirubin 0.0 mg/dL (0.0-0.4) 03/25/20 13:00 Neonat Total Bilirubin Not Reportable 03/25/20 13:00 Neonat Direct Bilirubin Not Reportable 03/25/20 13:00 Neonat Indirect Bili Not Reportable 03/25/20 13:00 AST 16 U/L (14-36) 03/25/20 13:00 ALT 10 U/L (<35) 03/25/20 13:00 Alkaline Phosphatase 39 U/L (38-126) 03/25/20 13:00 Creatine Kinase 46 U/L (30-135) 03/26/20 19:20 CK-MB (CK-2) 0.32 ng/mL (<4.55) 03/26/20 19:20 Troponin I 0.022 ng/mL 03/26/20 19:20 NT-Pro-B Natriuret Pep 1240 pg/mL (<125) H 03/26/20 06:57 Total Protein 5.2 g/dL (6.3-8.2) L 03/25/20 13:00 Albumin 2.5 g/dL (3.5-5.0) L 03/25/20 13:00 Urine Color YELLOW 03/24/20 17:20 Urine Appearance CLOUDY 03/24/20 17:20 Urine pH 6.0 (5.0-9.0) 03/24/20 17:20 Ur Specific [place] 1.018 03/24/20 17:20 Urine Protein 100 mg/dL (NEGATIVE) H 03/24/20 17:20 Urine Glucose (UA) NEGATIVE mg/dL (NEGATIVE) 03/24/20 17:20 Urine Ketones 20 mg/dL (NEGATIVE) H 03/24/20 17:20 Urine Blood SMALL (NEGATIVE) H 03/24/20 17:20 Urine Nitrite NEGATIVE (NEGATIVE) 03/24/20 17:20 Urine Bilirubin NEGATIVE (NEGATIVE) 03/24/20 17:20 Urine Urobilinogen NEGATIVE mg/dL (<2.0) 03/24/20 17:20 Ur Leukocyte Esterase LARGE (NEGATIVE) H 03/24/20 17:20 Urine WBC (Auto) >182 /HPF 03/24/20 17:20 Urine RBC (Auto) 48 /HPF 03/24/20 17:20 Urine WBC Clumps MANY /HPF 03/24/20 17:20 Squamous Epi Cells Auto 1 /HPF 03/24/20 17:20 Urine Mucus (Auto) OCC /LPF 03/24/20 17:20 Urine Ascorbic Acid NEGATIVE (NEGATIVE) 03/24/20 17:20 Urine Opiates Screen NEGATIVE 03/24/20 17:20 Urine Methadone Screen NEGATIVE 03/24/20 17:20 Ur Barbiturates Screen NEGATIVE 03/24/20 17:20 Ur Phencyclidine Scrn NEGATIVE 03/24/20 17:20 Ur Amphetamines Screen NEGATIVE 03/24/20 17:20 U Benzodiazepines Scrn NEGATIVE 03/24/20 17:20 Urine Cocaine Screen NEGATIVE 03/24/20 17:20 U Marijuana (THC) Screen NEGATIVE 03/24/20 17:20 COVID-19 Source Cancelled 03/24/20 15:30 COVID-19 (ALEX) Cancelled 03/24/20 15:30 SARS-CoV-2 (PCR) NEGATIVE (NEGATIVE) 03/24/20 15:30 03/26/20 03/26/20 03/26/20 06:57 11:45 19:20 CK-MB (CK-2) < 0.22 < 0.22 0.32 Troponin I 0.035 0.019 0.022 NT-Pro-B Natriuret Pep 1240 H Impressions: Chest X-Ray 03/26/20 00:00 IMPRESSION: No active disease. Chest/Abdomen CTA 03/26/20 00:00 IMPRESSION: NORMAL CTA OF THE CHEST. NO PULMONARY EMBOLI. Stroke Is this a Stroke Patient?: No Acute Heart Failure - Is this a Heart Failure Patient?: No
[2020-03-27 11:37] VITALS: BP 101/80
--- NOTE | 2020-03-27 13:41 | PDOC PROGRESS REPORT ---
Subjective Progress Note for:: 03/27/20 Subjective:: No adverse events overnight. Her cardiac biomarkers remain negative. The only reason they were probably even detectable in the first place was because of the tachycardia that she had whenever she came in. Blood pressures remained stable. EKG was unremarkable except for a mild tachycardia with a rate of just over 100. CT of the chest was recommended by the radiologist was unremarkable. Reason For Visit: PYELONEPHRITIS Physical Exam Vital Signs: Temp Pulse Resp BP Pulse Ox 97.9 F 108 H 18 105/64 99 03/27/20 10:59 03/27/20 10:59 03/27/20 10:59 03/27/20 10:59 03/27/20 10:59 Intake & Output 03/26/20 03/27/20 03/28/20 06:59 06:59 06:59 Intake Total 1450 1950 50 Output Total 975 300 Balance 475 1650 50 Weight 87.6 kg The patient was not examined today because she had been discharged before I could get to the floor to see her. Results Laboratory Results: 03/26/20 06:57 03/26/20 06:57 03/24/20 17:20 Clean Catch Midstream Urine Culture - Final 6,000 col/ml 03/26/20 03/26/20 03/26/20 06:57 06:57 11:45 Creatine Kinase 43 42 CK-MB (CK-2) < 0.22 Troponin I 0.035 NT-Pro-B Natriuret Pep 1240 H 03/26/20 03/26/20 03/26/20 11:45 19:20 19:20 Creatine Kinase 46 CK-MB (CK-2) < 0.22 0.32 Troponin I 0.019 0.022 NT-Pro-B Natriuret Pep Impressions: Chest X-Ray 03/26/20 00:00 IMPRESSION: No active disease. Chest/Abdomen CTA 03/26/20 00:00 IMPRESSION: NORMAL CTA OF THE CHEST. NO PULMONARY EMBOLI. Assessment and Plan - Diagnosis (1) Chest pain Qualifiers: Chest pain type: other chest pain Qualified Code(s): R07.89 - Other chest pain; R07.8 - Other chest pain Is this a current diagnosis for this admission?: Yes Plan: Not entirely certain of the cause of her chest pain, possibly she was experiencing palpitations from her tachycardia. This is now resolved. She is ruled out for PE. She is ruled out for an acute coronary syndrome. (2) Pyelonephritis affecting Qualifiers: Trimester: second trimester Qualified Code(s): O23.02 - Infections of kidney in , second trimester Is this a current diagnosis for this admission?: Yes Plan: Management and follow-up per the obstetrics service. - Plan Summary Summary: admited with pyelonephritis that has been treated and improved significantly. Patient on arrival did complain of chest pain and had a full work-up with CT CT of the chest returned negative for any type of pulmonary embolism. Her hospital course has shown significant improvement of her flank tenderness and she is now ready for discharge home. Cultures have not grown any bacteria. Her white count has improved to a normal level - Time Time Spent with patient: Less than 15 minutes
== END 2020-03-27 11:43 | disposition home or self-care (01) | DRG 833 ==
LOC: OBSVTOIN 14:20 → 2N 14:20
PROVIDERS: ADMIT Obstetrics & Gynecology Gynecology; ATTEND Obstetrics & Gynecology Gynecology
DX: O23.02 Infections of kidney in pregnancy, second trimester (principal); R07.89 Other chest pain; Z3A.20 20 weeks gestation of pregnancy; Z03.818 Encounter for observation for suspected exposure to other biological agents ruled out
CPT/HCPCS: 36415; 71045; 71275; 80048; 80053; 80307; 81001; 82550; 82553; 83605; 83735; 83880; 84484; 85025; 85379; 87040; 87086; 87635; 93005; 93010; 94799; J0696; J2405; J2550; J3490; J7030; J7120; S0028

== ENCOUNTER 2020-04-09 15:31 | Outpatient (CLI) | payer MEDICAID ==
[2020-04-09] MEDS ORDERED: RINGERS SOLUTION,LACTATED 1,000 ML IV ONE (15:51)
[2020-04-09] MEDS ORDERED: ONDANSETRON HCL INJ/PF 4 MG/2 ML SDV IV ONE (15:52)
[2020-04-09] MEDS ORDERED: PROMETHAZINE HCL INJ 25 MG/1 ML VIAL IV ONE (15:56)
[2020-04-09] MEDS ORDERED: RINGERS SOLUTION,LACTATED 1,000 ML IV PRN (15:58)
[2020-04-09] MEDS ORDERED: ACETAMINOPHEN 1,000 MG/100 ML RTUPB IV PRN (15:59)
[2020-04-09 16:16] LABS: APPEARANCE,URINE SLIGHTLY-CLOUDY; BILIRUBIN,URINE NEGATIVE (NEGATIVE); COLOR,URINE YELLOW; GLUCOSE, URINE NEGATIVE (NEGATIVE); KETONES,URINE 20 mg/dL (NEGATIVE); LEUKOCYTE ESTERASE,URINE TRACE (NEGATIVE); NITRITE,URINE NEGATIVE (NEGATIVE); PROTEIN,URINE 30 mg/dL (NEGATIVE); UROBILINOGEN,URINE NEGATIVE mg/dL (<2.0)
[2020-04-09] MEDS ORDERED: ACETAMINOPHEN 1,000 MG/100 ML RTUPB IV ONE (16:19)
[2020-04-09] MEDS ORDERED: PROMETHAZINE HCL INJ 25 MG/1 ML VIAL ONE (16:19)
[2020-04-09] MEDS ORDERED: ONDANSETRON HCL INJ/PF 4 MG/2 ML SDV ONE (16:19)
[2020-04-09 16:35] LABS: URINE AMPHETAMINES SCREEN NEGATIVE; URINE BARBITURATES SCREEN NEGATIVE; URINE BENZODIAZEPINES SCREEN NEGATIVE; URINE COCAINE SCREEN NEGATIVE; URINE MARIJUANA (THC) SCREEN NEGATIVE; URINE METHADONE SCREEN NEGATIVE; URINE PHENCYCLIDINE SCREEN NEGATIVE
== END 2020-04-09 19:13 | disposition home or self-care (01) ==
LOC: LC 15:31
PROVIDERS: ATTEND Obstetrics & Gynecology
DX: O99.282 Endocrine, nutritional and metabolic diseases complicating pregnancy, second trimester (principal); E86.0 Dehydration; Z3A.23 23 weeks gestation of pregnancy
CPT/HCPCS: 59899; 81001; 80307; J2550; J2405; J0131

== ENCOUNTER 2020-07-01 03:16 | Outpatient (CLI) | payer MEDICAID ==
[2020-07-01 04:14] LABS: URINE AMPHETAMINES SCREEN NEGATIVE; URINE BARBITURATES SCREEN NEGATIVE; URINE BENZODIAZEPINES SCREEN NEGATIVE; URINE COCAINE SCREEN NEGATIVE; URINE MARIJUANA (THC) SCREEN NEGATIVE; URINE METHADONE SCREEN NEGATIVE; URINE PHENCYCLIDINE SCREEN NEGATIVE
[2020-07-01 04:27] LABS: APPEARANCE,URINE SLIGHTLY-CLOUDY; BILIRUBIN,URINE NEGATIVE (NEGATIVE); COLOR,URINE YELLOW; GLUCOSE, URINE NEGATIVE (NEGATIVE); KETONES,URINE NEGATIVE (NEGATIVE); LEUKOCYTE ESTERASE,URINE MODERATE (NEGATIVE); NITRITE,URINE NEGATIVE (NEGATIVE); PROTEIN,URINE 30 mg/dL (NEGATIVE); URINE SPECIFIC GRAVITY 1.017; UROBILINOGEN,URINE NEGATIVE mg/dL (<2.0)
--- NOTE | 2020-07-01 04:57 | Non Stress Test Report ---
Non Stress Test Datetime Report Generated by CPN: 07/01/2020 04:57 DEMOGRAPHIC EGA NST: 35.0 INDICATION Indication for Study (NST) Other: lc MONITORING Monitor Explained: Monitor Explained; Test Explained; Patient Verbalized Understanding Time on Monitor: 07/01/2020 03:40 Time off Monitor: 07/01/2020 04:48 NST Duration: 68 NST INTERVENTIONS NST Interventions: PO Hydration; Reposition Patient Physician Notified NST: Dr Reynaga BABY A: [id number] BABY A Movement : Present Contraction Frequency : 0 FHR Baseline : 135 Accelerations : 15X15 Decelerations : None Variability : Moderate 6-25bpm NST Review: Meets Criteria for Reactive NST NST Review and Verified By : Abdelrahman Govea RN NST Results: Reactive NST REPORT Report Trigger: Send Report
== END 2020-07-01 05:00 | disposition home or self-care (01) ==
LOC: LC 03:16
PROVIDERS: ATTEND Obstetrics & Gynecology
DX: Z34.83 Encounter for supervision of other normal pregnancy, third trimester (principal); Z3A.35 35 weeks gestation of pregnancy
CPT/HCPCS: 59025; 80307; 81001; 87086

== ENCOUNTER 2020-07-28 21:49 | Outpatient (CLI) | payer MEDICAID ==
[2020-07-28 22:40] LABS: APPEARANCE,URINE SLIGHTLY-CLOUDY; BILIRUBIN,URINE NEGATIVE (NEGATIVE); COLOR,URINE YELLOW; GLUCOSE, URINE NEGATIVE (NEGATIVE); KETONES,URINE 20 mg/dL (NEGATIVE); LEUKOCYTE ESTERASE,URINE NEGATIVE (NEGATIVE); NITRITE,URINE NEGATIVE (NEGATIVE); PROTEIN,URINE 30 mg/dL (NEGATIVE); URINE SPECIFIC GRAVITY 1.021; UROBILINOGEN,URINE NEGATIVE mg/dL (<2.0)
[2020-07-28] MEDS ORDERED: RINGERS SOLUTION,LACTATED 1,000 ML IV ONE (23:00)
[2020-07-28 23:02] LABS: URINE AMPHETAMINES SCREEN NEGATIVE; URINE BARBITURATES SCREEN NEGATIVE; URINE BENZODIAZEPINES SCREEN NEGATIVE; URINE COCAINE SCREEN NEGATIVE; URINE MARIJUANA (THC) SCREEN NEGATIVE; URINE METHADONE SCREEN NEGATIVE; URINE PHENCYCLIDINE SCREEN NEGATIVE
[2020-07-28] MEDS ORDERED: HYDROXYZINE PAMOATE 50 MG CAPSULE ONE (23:08)
[2020-07-28] MEDS ORDERED: TERBUTALINE SULFATE INJ/PF 1 MG/1 ML SDV ONE (23:08)
[2020-07-28] MEDS ORDERED: TERBUTALINE SULFATE INJ/PF 1 MG/1 ML SDV SUBCUT ONE (23:45)
[2020-07-28] MEDS ORDERED: HYDROXYZINE PAMOATE 50 MG CAPSULE PO ONE (23:45)
--- NOTE | 2020-07-29 05:05 | Non Stress Test Report ---
Non Stress Test Datetime Report Generated by CPN: 07/29/2020 05:05 DEMOGRAPHIC EGA NST: 38.6 INDICATION Indication for Study (NST) Other: LC- ctx MONITORING Monitor Explained: Monitor Explained; Test Explained; Patient Verbalized Understanding Time on Monitor: 07/28/2020 23:30 Time off Monitor: 07/29/2020 00:52 NST Duration: 82 NST INTERVENTIONS NST Interventions: IV Fluids; Reposition Patient Physician Notified NST: E. Jilek SCIENCE LIAISON A: [id number] BABY A Movement : Present Contraction Frequency : irregular FHR Baseline : 150 Accelerations : 15X15 Decelerations : None Variability : Moderate 6-25bpm NST Review: Meets Criteria for Reactive NST NST Review and Verified By : David Bellavance RN NST Results: Reactive NST REPORT Report Trigger: Send Report
[2020-07-29] MEDS ORDERED: MISOPROSTOL 0.2 MG TABLET ONE (09:40)
== END 2020-07-29 05:09 | disposition home or self-care (01) ==
LOC: LC 21:49
PROVIDERS: ATTEND Obstetrics & Gynecology
DX: O47.1 False labor at or after 37 completed weeks of gestation (principal); Z3A.38 38 weeks gestation of pregnancy
CPT/HCPCS: 59025; 82962; 81005; 80307; J3490; J3105

== ENCOUNTER 2020-07-29 05:08 | Inpatient (IN) | payer MEDICAID ==
[2020-07-23 09:49] LABS: ABSOLUTE EOSINOPHILS # (AUTO) 0.2 10^3/uL (0.0-0.6); ABSOLUTE LYMPHOCYTES (AUTO) 1.8 10^3/uL (0.5-4.7); ABSOLUTE MONOCYTES (AUTO) 0.7 10^3/uL (0.1-1.4); ABSOLUTE NEUT (AUTO) 5.7 10^3/uL (1.7-8.2); BASOPHILS % (AUTO) 0.5 % (0-2); EOSINOPHILS % (AUTO) 2.3 % (0-6); HEMATOCRIT 34.8 % (36.0-47.0); HEMOGLOBIN 11.9 g/dL (12.0-15.5); LYMPHOCYTES % (AUTO) 21.4 % (13-45); MEAN CORPUSCULAR HEMOGLOBIN 29.4 pg (27.0-33.4); MEAN CORPUSCULAR HGB CONC 34.2 g/dL (32.0-36.0); MEAN CORPUSCULAR VOLUME 86 fl (80-97); MONOCYTES % (AUTO) 7.9 % (3-13); PLATELET COUNT 209 10^3/uL (150-450); RED BLOOD COUNT 4.06 10^6/uL (3.72-5.28); RED CELL DISTRIBUTION WIDTH 15.4 % (11.5-14.0); SEGMENTED NEUTROPHILS % (AUTO) 67.9 % (42-78); TOTAL CELLS COUNTED % (AUTO) 100 %; WHITE BLOOD COUNT 8.4 10^3/uL (4.0-10.5)
[2020-07-23 10:05] LABS: APPEARANCE,URINE SLIGHTLY-CLOUDY; BILIRUBIN,URINE NEGATIVE (NEGATIVE); COLOR,URINE YELLOW; GLUCOSE, URINE NEGATIVE (NEGATIVE); KETONES,URINE NEGATIVE (NEGATIVE); LEUKOCYTE ESTERASE,URINE MODERATE (NEGATIVE); NITRITE,URINE NEGATIVE (NEGATIVE); PROTEIN,URINE NEGATIVE (NEGATIVE); UROBILINOGEN,URINE NEGATIVE mg/dL (<2.0)
[2020-07-23 10:32] LABS: URINE AMPHETAMINES SCREEN NEGATIVE; URINE BARBITURATES SCREEN NEGATIVE; URINE BENZODIAZEPINES SCREEN NEGATIVE; URINE COCAINE SCREEN NEGATIVE; URINE MARIJUANA (THC) SCREEN NEGATIVE; URINE PHENCYCLIDINE SCREEN NEGATIVE
[2020-07-23 10:51] LABS: URINE METHADONE SCREEN NEGATIVE
[~2020-07-29 05:08] MED LIST: CEFAZOLIN 2 GM/D5W RTU 2 GM/50 ML RTUPB IV PRN; LACTATED RINGERS 1000 ML IV PRN; LIDOCAINE 0.5% INJ-PF (5 MG/ML) 50 ML SDV SUBCUT PRN; RINGERS SOLUTION,LACTATED 1,000 ML IV PRN
[2020-07-29] MEDS ORDERED: FENTANYL CITRATE INJ/PF 100 MCG/2 ML AMPUL ONE (07:26)
[2020-07-29] MEDS ORDERED: EPHEDRINE SULFATE INJ 50 MG/1 ML AMPULE ONE (07:26)
[2020-07-29] MEDS ORDERED: OXYTOCIN 10 UNIT/ML VIAL ONE ×2 (07:26→09:14)
[2020-07-29] MEDS ORDERED: MIDAZOLAM 2 MG/2 ML INJ ONE (07:26)
[2020-07-29] MEDS ORDERED: KETOROLAC TROMETHAMINE INJ/PF 30 MG/1 ML SDV ONE (07:26)
[2020-07-29] MEDS ORDERED: MORPHINE SULFATE 10 MG/ML INJ ONE (07:27)
[2020-07-29] MEDS ORDERED: ACETAMINOPHEN 1,000 MG/100 ML RTUPB IV ONE (07:27)
[2020-07-29] MEDS ORDERED: ONDANSETRON HCL INJ/PF 4 MG/2 ML SDV ONE ×2 (07:27→13:40)
[2020-07-29] MEDS ORDERED: MEASLES,MUMPS&RUBELLA VACC/PF 0.5 ML VIAL SUBCUT PRN (08:06)
[2020-07-29] MEDS ORDERED: PROMETHAZINE HCL INJ 25 MG/1 ML VIAL IV PRN ×3 (08:06→08:39)
[2020-07-29] MEDS ORDERED: OXYTOCIN/0.9 % SODIUM CHLORIDE 30 UNIT/500 ML RTUINJ IV PRN (08:06)
[2020-07-29] MEDS ORDERED: OXYCODONE-ACETAMINOPHEN 5-325 MG TABLET PO PRN ×4 (08:06→08:39)
[2020-07-29] MEDS ORDERED: SIMETHICONE 80 MG TAB.CHEW PO PRN (08:06)
[2020-07-29] MEDS ORDERED: DIPH/PERTUSS(ACELL)/TETANUS VAC/PF 0.5 ML SYR (>=10YO) IM PRN (08:06)
[2020-07-29] MEDS ORDERED: HYDROMORPHONE HCL INJ/PF 2 MG/ML AMPULE IV PRN (08:06)
[2020-07-29] MEDS ORDERED: ACETAMINOPHEN 1,000 MG/100 ML RTUPB IV PRN (08:06)
[2020-07-29] MEDS ORDERED: ACETAMINOPHEN 325 MG TABLET PO PRN ×2 (08:06→13:36)
[2020-07-29] MEDS ORDERED: MEPERIDINE HCL/PF INJ 25 MG/1 ML DISP.SYRIN IV PRN (08:39)
[2020-07-29] MEDS ORDERED: FENTANYL CITRATE INJ/PF 100 MCG/2 ML AMPUL IV PRN ×3 (08:39)
[2020-07-29] MEDS ORDERED: DIPHENHYDRAMINE HCL 50 MG/ML VIAL IV PRN (08:39)
[2020-07-29] MEDS ORDERED: ONDANSETRON HCL INJ/PF 4 MG/2 ML SDV IV PRN (08:39)
[2020-07-29] MEDS ORDERED: MORPHINE SULFATE 10 MG/ML INJ IV PRN (08:39)
--- NOTE | 2020-07-29 09:14 | Operative Report ---
Operative Report DATE OF SURGERY: 07/29/20 PREOPERATIVE DIAGNOSIS: Patient desires a repeat and tubal ligation u sing Filshie clips POSTOPERATIVE DIAGNOSIS: Same OPERATION: Repeat via low transverse uterine incision and tubal ligation with bilateral Filshie clips SURGEON: MIKAELA PEACE ANESTHESIA: Spinal TISSUE REMOVED OR ALTERED: Placenta COMPLICATIONS: None ESTIMATED BLOOD LOSS: 400 cc QUANTITATIVE BLOOD LOSS: 900 INTRAOPERATIVE FINDINGS: Viable female . Normal uterus tubes and ovaries PROCEDURE: Patient was taken to the OR and placed in supine position after her spinal anesthesia. She is prepared and draped in sterile fashion. Y[place] was placed for drainage of the bladder. Low transverse incision was made and carried down the level of the fascia. The previous skin scar was excised. The fascial incision was made with knife and extended bilaterally with curved Mckinney scissors. The fascia was off the rectus muscles using sharp and blunt dissection. The rectus muscles are in the midline. The peritoneum w as entered without incident. Bladder blade was placed in uterine segment was identified. A low transverse incision was made creating a bladder flap. Bladder blade was placed low transverse uterine incision was made with the knife and extended with fingertips. The baby was delivered with some fundal pressure. Mouth and nose were suctioned free. The cord is doubly clamped and cut. Baby is passed off to the dance costume designer in attendance. The placenta was manually extracted with trailing membranes. The uterus was externalized wrapped in a moist lap sponge. Uterine contents wiped free. Uterus was closed with a running locking layer of 0 chromic suture using the second layer to imbricate the first completing a double layer closure of the uterus. The serosa was closed with a running 2-0 chromic stitch. A Filshie clip was placed across the mid isthmic portion of each fallopian tube. Both tubes were identified by their fimbriated ends. The pelvis was irrigated and suctioned free of fluid the uterus was replaced in the abdomen. The abdominal wall peritoneum was closed with running 2-0 chromic stitch. Fascia was closed with a running 0 Vicryl in 2 segments. Bryant's layer was brought together with 0 plain gut stitch and the skin was closed with running subcuticular 4-0 undyed Vicryl stitch. The wound was dressed mother and baby did well.
[2020-07-29] MEDS ORDERED: DEXAMETHASONE SOD PHOSPHATE INJ 4 MG/1 ML VIAL ONE (09:15)
[2020-07-29] MEDS ORDERED: MISOPROSTOL 0.2 MG TABLET PR ONE (10:00)
[2020-07-29] MEDS ORDERED: MEPERIDINE HCL/PF INJ 25 MG/1 ML DISP.SYRIN ONE (10:18)
[2020-07-29] MEDS ORDERED: HYDROMORPHONE HCL INJ/PF 2 MG/ML AMPULE ONE ×2 (10:50→12:51)
[2020-07-29 10:55] LABS: HEMATOCRIT 27.9 % (36.0-47.0); HEMOGLOBIN 9.3 g/dL (12.0-15.5); MEAN CORPUSCULAR HEMOGLOBIN 29.5 pg (27.0-33.4); MEAN CORPUSCULAR HGB CONC 33.3 g/dL (32.0-36.0); MEAN CORPUSCULAR VOLUME 89 fl (80-97); PLATELET COUNT 199 10^3/uL (150-450); RED BLOOD COUNT 3.15 10^6/uL (3.72-5.28); RED CELL DISTRIBUTION WIDTH 16.2 % (11.5-14.0); WHITE BLOOD COUNT 11.5 10^3/uL (4.0-10.5)
[2020-07-29 11:18] LABS: INTERNATIONAL RATION (INR) 1.09; PROTHROMBIN TIME 14.3 SEC (11.4-15.4)
[2020-07-29 11:19] LABS: PARTIAL THROMBOPLASTIN TIME 25.9 SEC (23.5-35.8)
[2020-07-29] MEDS: DOCUSATE SODIUM 100 MG CAPSULE PO SCH ×2 (12:15→18:22)
[2020-07-29] MEDS: PRENATAL VITAMIN W DHA CAPSULE PO SCH (12:16)
[2020-07-29 13:04] LABS: HEMATOCRIT 23.5 % (36.0-47.0); MEAN CORPUSCULAR HGB CONC 33.4 g/dL (32.0-36.0); MEAN CORPUSCULAR VOLUME 87 fl (80-97); PLATELET COUNT 244 10^3/uL (150-450); RED BLOOD COUNT 2.71 10^6/uL (3.72-5.28); RED CELL DISTRIBUTION WIDTH 15.9 % (11.5-14.0); WHITE BLOOD COUNT 20.9 10^3/uL (4.0-10.5)
[2020-07-29 13:14] LABS: HEMOGLOBIN 7.9 g/dL (12.0-15.5)
[2020-07-29] MEDS ORDERED: NORMAL SALINE 250 ML IV PRN ×2 (13:16)
--- NOTE | 2020-07-29 13:21 | PDOC PROGRESS REPORT ---
Subjective-OB Progress Note for:: 07/29/20 Subjective: The pt is not feeling well and the H/H has dropped. We will go ahead with the transfusion at this time. Her vaginal bleeding has slowed quite a bit. Will follow. Physical Exam (OB) Vital Signs: Temp Pulse Resp BP Pulse Ox 97.9 F 95 18 153/94 H 99 07/29/20 05:45 07/29/20 05:45 07/29/20 05:45 07/29/20 05:48 07/29/20 05:45 - Maternal Morbidity 59. Maternal Morbidity (serious complications experinced by the mother associated with labor and delivery: Maternal transfusion - Abdomen Hernia Present: No Objective-Diagnostic Laboratory: 07/29/20 12:54 07/29/20 07/29/20 10:37 12:54 WBC 11.5 H 20.9 H RBC 3.15 L 2.71 L Hgb 9.3 L 7.9 L Hct 27.9 L 23.5 L MCV 89 87 MCH 29.5 29.0 MCHC 33.3 33.4 RDW 16.2 H 15.9 H Plt Count 199 244 Seg Neutrophils % Not Reportable Assessment and Plan(PN) - Time Spent with Patient Time with patient: Greater than 35 minutes Medications reviewed and adjusted accordingly: Yes - Disposition Anticipated Discharge Disposition: uncertain Anticipated Discharge Timeframe: uncertain
[2020-07-29 13:24] LABS: ABSOLUTE LYMPHOCYTES# (MANUAL) 1.7 10^3/uL (0.5-4.7); ABSOLUTE MONOCYTES # (MANUAL) 0.2 10^3/uL (0.1-1.4); ANISOCYTOSIS 1+; BASOPHILS % (MANUAL) 0 % (0-2); EOSINOPHILS % (MANUAL) 0 % (0-6); LYMPHOCYTES % (MANUAL) 8 % (13-45); MONOCYTES % (MANUAL) 1 % (3-13); PLATELET COMMENT ADEQUATE; SEGMENTED NEUTROPHILS % (MAN) 91 % (42-78); TOTAL CELLS COUNTED 100
[2020-07-29] MEDS ORDERED: DIPHENHYDRAMINE HCL 25 MG CAPSULE PO PRN (13:36)
[2020-07-29] MEDS ORDERED: KETOROLAC TROMETHAMINE INJ/PF 30 MG/1 ML SDV IV SCH (14:00)
--- NOTE | 2020-07-29 14:44 | EKG REPORT ---
SEVERITY:- OTHERWISE NORMAL ECG - SINUS TACHYCARDIA : Confirmed by: Rosa Farrar MD 29-Jul-2020 14:42:45
[2020-07-29] MEDS: KETOROLAC TROMETHAMINE INJ/PF 30 MG/1 ML SDV IV SCH (18:32)
[2020-07-29] MEDS ORDERED: ONDANSETRON HCL INJ/PF 4 MG/2 ML SDV IV ONE (20:45)
[2020-07-29] MEDS: RINGERS SOLUTION,LACTATED 1,000 ML IV PRN (21:00)
[2020-07-29 23:39] LABS: ABSOLUTE LYMPHOCYTES (AUTO) 2.4 10^3/uL (0.5-4.7); ABSOLUTE MONOCYTES (AUTO) 1.7 10^3/uL (0.1-1.4); ABSOLUTE NEUT (AUTO) 14.1 10^3/uL (1.7-8.2); BASOPHILS % (AUTO) 0.1 % (0-2); HEMATOCRIT 29.9 % (36.0-47.0); LYMPHOCYTES % (AUTO) 13.4 % (13-45); MEAN CORPUSCULAR HGB CONC 34.3 g/dL (32.0-36.0); MEAN CORPUSCULAR VOLUME 87 fl (80-97); MONOCYTES % (AUTO) 9.4 % (3-13); PLATELET COUNT 182 10^3/uL (150-450); RED BLOOD COUNT 3.42 10^6/uL (3.72-5.28); SEGMENTED NEUTROPHILS % (AUTO) 77.1 % (42-78); TOTAL CELLS COUNTED % (AUTO) 100 %; WHITE BLOOD COUNT 18.3 10^3/uL (4.0-10.5)
[2020-07-29 23:41] LABS: HEMOGLOBIN 10.2 g/dL (12.0-15.5)
[2020-07-29 23:46] LABS: INTERNATIONAL RATION (INR) 1.04; PROTHROMBIN TIME 13.8 SEC (11.4-15.4)
[2020-07-30] MEDS: KETOROLAC TROMETHAMINE INJ/PF 30 MG/1 ML SDV IV SCH (03:00)
[2020-07-30] MEDS: RINGERS SOLUTION,LACTATED 1,000 ML IV PRN (04:52)
[2020-07-30 07:02] LABS: HEMATOCRIT 26.9 % (36.0-47.0); HEMOGLOBIN 9.1 g/dL (12.0-15.5); MEAN CORPUSCULAR HEMOGLOBIN 29.8 pg (27.0-33.4); MEAN CORPUSCULAR HGB CONC 33.8 g/dL (32.0-36.0); MEAN CORPUSCULAR VOLUME 88 fl (80-97); PLATELET COUNT 191 10^3/uL (150-450); RED BLOOD COUNT 3.05 10^6/uL (3.72-5.28); RED CELL DISTRIBUTION WIDTH 15.4 % (11.5-14.0); WHITE BLOOD COUNT 16.1 10^3/uL (4.0-10.5)
--- NOTE | 2020-07-30 08:43 | PDOC PROGRESS REPORT ---
Subjective-OB Progress Note for:: 07/30/20 Subjective: Feeling dizzy when up. Physical Exam (OB) Vital Signs: Temp Pulse Resp BP Pulse Ox 98.4 F 113 H 20 100/64 96 07/30/20 03:42 07/30/20 07:05 07/30/20 03:42 07/30/20 06:59 07/30/20 03:42 Intake & Output 07/29/20 07/30/20 07/31/20 06:59 06:59 06:59 Intake Total 2723 Output Total 1278 Balance 1445 - PIH/Pre-Eclampsia Clonus: Negative Headache: Absent Epigastric Pain: No Visual Changes: No - Dressing Removed: No Incision: Dressing - Maternal Morbidity 59. Maternal Morbidity (serious complications experinced by the mother associated with labor and delivery: Maternal transfusion - Lochia Lochia Amount: Small 10-25 ml Lochia Color: Rubra/Red - Abdomen Description: Soft, Round Hernia Present: No Bowel Sounds: Normoactive Flatus Presence: Present Stool: No Fundal Description: Firm, Midline Fundal Height: 3/u - 4/u Objective-Diagnostic Laboratory: 07/30/20 06:34 07/27/20 07/29/20 07/29/20 10:40 10:37 12:54 WBC 11.5 H 20.9 H RBC 3.15 L 2.71 L Hgb 9.3 L 7.9 L Hct 27.9 L 23.5 L MCV 89 87 MCH 29.5 29.0 MCHC 33.3 33.4 RDW 16.2 H 15.9 H Plt Count 199 244 Seg Neutrophils % Not Reportable Blood Type B POSITIVE Antibody Screen NEGATIVE 07/29/20 07/30/20 23:21 06:34 WBC 18.3 H 16.1 H RBC 3.42 L 3.05 L Hgb 10.2 L D 9.1 L Hct 29.9 L 26.9 L MCV 87 88 MCH 30.0 29.8 MCHC 34.3 33.8 RDW 15.0 H 15.4 H Plt Count 182 191 Seg Neutrophils % 77.1 Blood Type Antibody Screen Assessment and Plan(PN) - Time Spent with Patient Critical Time spent with patient: Less than 15 minutes Medications reviewed and adjusted accordingly: Yes - Disposition Anticipated Discharge Disposition: Home, Self Care Anticipated Discharge Timeframe: within 36 hours
[2020-07-30] MEDS: DOCUSATE SODIUM 100 MG CAPSULE PO SCH (09:44)
[2020-07-30] MEDS: PRENATAL VITAMIN W DHA CAPSULE PO SCH (09:44)
[2020-07-30] MEDS: IBUPROFEN 800 MG TABLET PO SCH ×2 (12:37→17:23)
[2020-07-31] MEDS: DOCUSATE SODIUM 100 MG CAPSULE PO SCH ×3 (00:48→18:26)
[2020-07-31] MEDS: IBUPROFEN 800 MG TABLET PO SCH ×5 (00:50→23:15)
[2020-07-31] MEDS: PRENATAL VITAMIN W DHA CAPSULE PO SCH (10:04)
[2020-07-31 10:33] LABS: ABSOLUTE BASOPHILS # (AUTO) 0.1 10^3/uL (0.0-0.2); ABSOLUTE EOSINOPHILS # (AUTO) 0.2 10^3/uL (0.0-0.6); ABSOLUTE LYMPHOCYTES (AUTO) 1.7 10^3/uL (0.5-4.7); ABSOLUTE MONOCYTES (AUTO) 0.5 10^3/uL (0.1-1.4); ABSOLUTE NEUT (AUTO) 7.1 10^3/uL (1.7-8.2); BASOPHILS % (AUTO) 0.6 % (0-2); EOSINOPHILS % (AUTO) 1.8 % (0-6); HEMATOCRIT 20.6 % (36.0-47.0); LYMPHOCYTES % (AUTO) 17.6 % (13-45); MEAN CORPUSCULAR HEMOGLOBIN 30.5 pg (27.0-33.4); MEAN CORPUSCULAR HGB CONC 34.9 g/dL (32.0-36.0); MEAN CORPUSCULAR VOLUME 88 fl (80-97); MONOCYTES % (AUTO) 5.7 % (3-13); PLATELET COUNT 159 10^3/uL (150-450); RED BLOOD COUNT 2.35 10^6/uL (3.72-5.28); SEGMENTED NEUTROPHILS % (AUTO) 74.3 % (42-78); TOTAL CELLS COUNTED % (AUTO) 100 %; WHITE BLOOD COUNT 9.6 10^3/uL (4.0-10.5)
[2020-07-31 10:56] LABS: HEMOGLOBIN 7.2 g/dL (12.0-15.5)
[2020-07-31] MEDS ORDERED: NORMAL SALINE 250 ML IV PRN ×2 (12:09)
--- NOTE | 2020-07-31 13:14 | PDOC PROGRESS REPORT ---
Subjective-OB Progress Note for:: 07/31/20 Subjective: feeling ok, just tired. apprehensive when asked if she is ready to go home. c/o very large clot passed last night. agreed to plan for CBC repeat today Physical Exam (OB) Vital Signs: Temp Pulse Resp BP Pulse Ox 98.2 F 92 20 119/67 98 07/31/20 11:08 07/31/20 11:08 07/31/20 07:30 07/31/20 07:30 07/31/20 11:08 Intake & Output 07/30/20 07/31/20 08/01/20 06:59 06:59 06:59 Intake Total 2723 50 Output Total 1278 1895 Balance 1445 -9405 - Dressing Removed: No Incision: Dressing - op site - Maternal Morbidity 59. Maternal Morbidity (serious complications experinced by the mother associated with labor and delivery: Maternal transfusion - Abdomen Description: Tender, Soft, Round Hernia Present: No Fundal Description: Firm, Midline Fundal Height: u/u - u/2 - Abdominal Distension: No distension - Extremities Lower extremities: Hetal's sign - neg Calf: Normal, Nontender Objective-Diagnostic Laboratory: 07/31/20 10:17 07/31/20 10:17 WBC 9.6 RBC 2.35 L Hgb 7.2 L Hct 20.6 L MCV 88 MCH 30.5 MCHC 34.9 RDW 16.0 H Plt Count 159 Seg Neutrophils % 74.3 Assessment and Plan(PN) - Assessment and Plan (1) Encounter for female sterilization procedure Is this a current diagnosis for this admission?: Yes (2) Undesired fertility Is this a current diagnosis for this admission?: Yes (3) Transfusion of blood during current hospitalisation Is this a current diagnosis for this admission?: Yes (4) Acute blood loss anemia Is this a current diagnosis for this admission?: Yes (5) Delivery by elective caesarean section Is this a current diagnosis for this admission?: Yes - Time Spent with Patient Time with patient: Less than 15 minutes Medications reviewed and adjusted accordingly: Yes - Disposition Anticipated Discharge Disposition: Home, Self Care Anticipated Discharge Timeframe: within 24 hours - after CBC showed drop in H/H, pt agrees to blood transfusion
[2020-08-01 03:07] LABS: HEMATOCRIT 24.4 % (36.0-47.0); HEMOGLOBIN 8.4 g/dL (12.0-15.5); MEAN CORPUSCULAR HEMOGLOBIN 30.2 pg (27.0-33.4); MEAN CORPUSCULAR HGB CONC 34.3 g/dL (32.0-36.0); MEAN CORPUSCULAR VOLUME 88 fl (80-97); PLATELET COUNT 165 10^3/uL (150-450); RED BLOOD COUNT 2.78 10^6/uL (3.72-5.28); RED CELL DISTRIBUTION WIDTH 15.1 % (11.5-14.0); WHITE BLOOD COUNT 9.5 10^3/uL (4.0-10.5)
[2020-08-01] MEDS: IBUPROFEN 800 MG TABLET PO SCH ×2 (05:33→11:48)
[2020-08-01] MEDS: DOCUSATE SODIUM 100 MG CAPSULE PO SCH (10:07)
[2020-08-01] MEDS: PRENATAL VITAMIN W DHA CAPSULE PO SCH (10:07)
--- NOTE | 2020-08-01 10:45 | PDOC DISCHARGE SUMMARY ---
Impression - Admit/DC Date/PCP Admission Date/Primary Care Provider: 07/29/20 05:08 RYLAN PEACE CNM Discharge Date: 08/01/20 - Discharge Diagnosis (1) Encounter for female sterilization procedure Is this a current diagnosis for this admission?: Yes (2) Undesired fertility Is this a current diagnosis for this admission?: Yes (3) Transfusion of blood during current hospitalisation Is this a current diagnosis for this admission?: Yes (4) Acute blood loss anemia Is this a current diagnosis for this admission?: Yes (5) Delivery by elective caesarean section Is this a current diagnosis for this admission?: Yes - Additional Information Discharge Diet: Regular Discharge Activity: Balance Activity w/Rest, No Driving, No Lifting Over 10 Pounds, No Lifting/Push/Pulling, Pelvic Rest, No tub bath Referrals: RYLAN PEACE CNM [Primary Care Provider] - Prescriptions: Lorazepam [Ativan 0.5 mg Tablet] 0.5 mg PO Q4 PRN #20 tab PRN Reason: Ibuprofen [Motrin 800 mg Tablet] 800 mg PO Q8HP PRN #90 tablet PRN Reason: Oxycodone HCl/Acetaminophen [Percocet 5-325 mg Tablet] 1 tab PO Q4HP PRN #30 tablet PRN Reason: Home Medications: Pediatric Multivitamin No.76 [Flintstones Complete] 1 each PO DAILY 04/09/20 Ibuprofen [Motrin 800 mg Tablet] 800 mg PO Q8HP PRN #90 tablet 08/01/20 Lorazepam [Ativan 0.5 mg Tablet] 0.5 mg PO Q4 PRN #20 tab 08/01/20 Oxycodone HCl/Acetaminophen [Percocet 5-325 mg Tablet] 1 tab PO Q4HP PRN #30 tablet 08/01/20 Hospital Course 59. Maternal Morbidity (serious complications experinced by the mother associated with labor and delivery: Maternal transfusion Results Laboratory Results: WBC 9.5 10^3/uL (4.0-10.5) 08/01/20 03:01 RBC 2.78 10^6/uL (3.72-5.28) L 08/01/20 03:01 Hgb 8.4 g/dL (12.0-15.5) L 08/01/20 03:01 Hct 24.4 % (36.0-47.0) L 08/01/20 03:01 MCV 88 fl (80-97) 08/01/20 03:01 MCH 30.2 pg (27.0-33.4) 08/01/20 03:01 MCHC 34.3 g/dL (32.0-36.0) 08/01/20 03:01 RDW 15.1 % (11.5-14.0) H 08/01/20 03:01 Plt Count 165 10^3/uL (150-450) 08/01/20 03:01 Lymph % (Auto) 17.6 % (13-45) 07/31/20 10:17 [place] % (Auto) 5.7 % (3-13) 07/31/20 10:17 Eos % (Auto) 1.8 % (0-6) 07/31/20 10:17 Baso % (Auto) 0.6 % (0-2) 07/31/20 10:17 Absolute Neuts (auto) 7.1 10^3/uL (1.7-8.2) 07/31/20 10:17 Absolute Lymphs (auto) 1.7 10^3/uL (0.5-4.7) 07/31/20 10:17 Absolute Monos (auto) 0.5 10^3/uL (0.1-1.4) 07/31/20 10:17 Absolute Eos (auto) 0.2 10^3/uL (0.0-0.6) 07/31/20 10:17 Absolute Basos (auto) 0.1 10^3/uL (0.0-0.2) 07/31/20 10:17 Total Counted 100 07/29/20 12:54 Seg Neutrophils % 74.3 % (42-78) 07/31/20 10:17 Seg Neuts % (Manual) 91 % (42-78) H 07/29/20 12:54 Lymphocytes % (Manual) 8 % (13-45) L 07/29/20 12:54 Monocytes % (Manual) 1 % (3-13) L 07/29/20 12:54 Eosinophils % (Manual) 0 % (0-6) 07/29/20 12:54 Basophils % (Manual) 0 % (0-2) 07/29/20 12:54 Abs Neuts (Manual) 19.0 10^3/uL (1.7-8.2) H 07/29/20 12:54 Abs Lymphs (Manual) 1.7 10^3/uL (0.5-4.7) 07/29/20 12:54 Abs Monocytes (Manual) 0.2 10^3/uL (0.1-1.4) 07/29/20 12:54 Absolute Eos (Manual) 0.0 10^3/uL (0.0-0.6) 07/29/20 12:54 Abs Basophils (Manual) 0.0 10^3/uL (0.0-0.2) 07/29/20 12:54 Platelet Comment ADEQUATE 07/29/20 12:54 Anisocytosis 1+ 07/29/20 12:54 PT 13.8 SEC (11.4-15.4) 07/29/20 23:21 INR 1.04 07/29/20 23:21 APTT 25.0 SEC (23.5-35.8) 07/29/20 23:21 Urine Color YELLOW 07/23/20 09:00 Urine Appearance SLIGHTLY-CLOUDY 07/23/20 09:00 Urine pH 7.0 (5.0-9.0) 07/23/20 09:00 Ur Specific [place] 1.010 07/23/20 09:00 Urine Protein NEGATIVE mg/dL (NEGATIVE) 07/23/20 09:00 Urine Glucose (UA) NEGATIVE mg/dL (NEGATIVE) 07/23/20 09:00 Urine Ketones NEGATIVE mg/dL (NEGATIVE) 07/23/20 09:00 Urine Blood NEGATIVE (NEGATIVE) 07/23/20 09:00 Urine Nitrite NEGATIVE (NEGATIVE) 07/23/20 09:00 Urine Bilirubin NEGATIVE (NEGATIVE) 07/23/20 09:00 Urine Urobilinogen NEGATIVE mg/dL (<2.0) 07/23/20 09:00 Ur Leukocyte Esterase MODERATE (NEGATIVE) H 07/23/20 09:00 Urine WBC (Auto) 14 /HPF 07/23/20 09:00 Urine RBC (Auto) 4 /HPF 07/23/20 09:00 Urine Bacteria (Auto) 1+ /HPF 07/23/20 09:00 Squamous Epi Cells Auto 4 /HPF 07/23/20 09:00 Urine Mucus (Auto) RARE /LPF 07/23/20 09:00 Urine Ascorbic Acid NEGATIVE (NEGATIVE) 07/23/20 09:00 Urine Opiates Screen NEGATIVE 07/23/20 09:00 Urine Methadone Screen NEGATIVE 07/23/20 09:00 Ur Barbiturates Screen NEGATIVE 07/23/20 09:00 Ur Phencyclidine Scrn NEGATIVE 07/23/20 09:00 Ur Amphetamines Screen NEGATIVE 07/23/20 09:00 U Benzodiazepines Scrn NEGATIVE 07/23/20 09:00 Urine Cocaine Screen NEGATIVE 07/23/20 09:00 U Marijuana (THC) Screen NEGATIVE 07/23/20 09:00 COVID-19 Source See comment 07/23/20 09:00 COVID-19 (ALEX) Not Detected (Not Detect) 07/23/20 09:00 Blood Type B POSITIVE 07/31/20 12:58 Blood Type Confirm B POSITIVE 07/27/20 10:40 Antibody Screen NEGATIVE 07/31/20 12:58 Crossmatch See Detail 07/31/20 12:58 Plan Health Concerns: needs to follow up with psychiatry [facility] for med mgt Plan of Treatment: follow up in one week at [facility] for incision check
[2020-08-01 11:18] VITALS: BP 116/74
== END 2020-08-01 13:40 | disposition home or self-care (01) | DRG 784 ==
LOC: 2N 05:08
PROVIDERS: ADMIT Obstetrics & Gynecology; ATTEND Obstetrics & Gynecology
PROC: 10D00Z1 Extraction of Products of Conception, Low, Open Approach (ICD-10-PCS; principal; 2020-07-29)
PROC: 0UL70CZ Occlusion of Bilateral Fallopian Tubes with Extraluminal Device, Open Approach (ICD-10-PCS; 2020-07-29)
PROC: 30233N1 Transfusion of Nonautologous Red Blood Cells into Peripheral Vein, Percutaneous Approach (ICD-10-PCS; 2020-07-29)
DX: O34.211 Maternal care for low transverse scar from previous cesarean delivery (principal); D62 Acute posthemorrhagic anemia; Z30.2 Encounter for sterilization; O90.81 Anemia of the puerperium; Z03.818 Encounter for observation for suspected exposure to other biological agents ruled out; Z3A.38 38 weeks gestation of pregnancy; Z37.0 Single live birth
CPT/HCPCS: 1961; 36415; 36430; 59025; 80307; 81001; 85025; 85027; 85610; 85730; 86850; 86900; 86901; 86920; 87635; 93005; 93010; 94760; 94799; C9803; J0131; J0690; J1100; J1170; J1885; J2175; J2250; J2270; J2405; J2590; J3010; J3490; J7050; J7120; P9016